=== PATIENT | female | born 1950 | race Caucasian/White ===

== ENCOUNTER 2016-04-24 07:30 | Day surgery (SDC) | payer BC ==
[2016-04-24] MEDS ORDERED: DEXAMETHASONE PRESERVATIVE FREE 10MG/ML VIAL IV ONE (11:07)
[2016-04-24] MEDS ORDERED: BUPIVACAINE 0.5% W/EPI MPF 30 ML VIAL IVP ONE (11:07)
[2016-04-24] MEDS ORDERED: LIDOCAINE 1% W/EPI 1:200,000 MPF 30ML SQ ONE (11:07)
[2016-04-24] MEDS ORDERED: LIDOCAINE 2% MDV (20MG/ML) 20ML VIAL IV ONE (15:47)
[2016-04-24] MEDS ORDERED: MIDAZOLAM HCL 2MG/2ML VIAL IV ONE (15:47)
[2016-04-24] MEDS ORDERED: FENTANYL PF 100MCG/2ML VIAL IV ONE (15:47)
[2016-04-24] MEDS ORDERED: PROPOFOL 10 MG/ML VIAL IV ONE (15:47)
--- NOTE | 2016-04-25 15:13 | Operative Note - [place] ---
DATE OF SURGERY: 04/24/16 PREOPERATIVE DIAGNOSIS: CERVICAL SPONDYLOSIS WITHOUT MYELOPATHY, ICD-10 CODE = M47.812. OPERATION: RADIOFREQUENCY RHIZOTOMY RIGHT CERVICAL FACETS 3/4, 4/5, AND 5/6. SURGEON: EFRAÍN CANAS D.O. ANESTHESIA: LOCAL SEDATION. ANESTHESIA PROVIDER: COLT KAUR CRNA. INDICATION: This patient presents with pain, which is neck. Examination shows tenderness in the cervical spine. Range of motion does cause pain to the neck with extension. Diagnostics show discs 5/6 and 6/7 and diffuse spondylosis. A facet series and previous rhizotomy of 70-90% pain control. Due to the failure of therapy and the success of the facet and previous rhizotomy, she is here for repeat. Because of the revised guidelines limiting the number of levels and bilateral technique, she will have the right today and return for the left. PROCEDURE: Intravenous line, vital sign monitoring, IV sedation, prepped, draped, sterile technique. Cervical facets on the right at 3/4, 4/5, and 5/6 marked and infiltrated. A #22 gauge rhizotomy cannula positioned. Stimulation trials conducted. Rhizotomy burn performed. Local with anti-inflammatory into the sites. Topical antibiotics. Sterile dressing applied. We will monitor and evaluate. EFRAÍN CANAS D.O. Date & Time cc: Dr. Sandhu JOB NUMBER: [id number] MTDD
== END 2016-04-24 10:10 | disposition home or self-care (01) ==
LOC: SUR 07:30
PROVIDERS: ATTEND Pain Medicine Interventional Pain Medicine
DX: M47.812 Spondylosis without myelopathy or radiculopathy, cervical region (principal); I10 Essential (primary) hypertension; E11.9 Type 2 diabetes mellitus without complications; Z79.84 Long term (current) use of oral hypoglycemic drugs; E78.00 Pure hypercholesterolemia, unspecified; M10.9 Gout, unspecified
CPT/HCPCS: 64633; 64634 ×2; 01936; J1100; J3010

== ENCOUNTER 2016-05-08 07:06 | Day surgery (SDC) | payer BC ==
[2016-05-08] MEDS ORDERED: LIDOCAINE 1% W/EPI 1:200,000 MPF 30ML SQ ONE (12:19)
[2016-05-08] MEDS ORDERED: BUPIVACAINE 0.5% W/EPI MPF 30 ML VIAL IVP ONE (12:19)
[2016-05-08] MEDS ORDERED: DEXAMETHASONE PRESERVATIVE FREE 10MG/ML VIAL IV ONE (12:19)
--- NOTE | 2016-05-08 16:07 | Operative Note - [place] ---
DATE OF SURGERY: 05/08/16 PREOPERATIVE DIAGNOSIS: CERVICAL SPONDYLOSIS WITHOUT MYELOPATHY, ICD-10 CODE = M47.812. OPERATION: RADIOFREQUENCY RHIZOTOMY LEFT CERVICAL FACETS 3/4, 4/5, AND 5 /6. SURGEON: EFRAÍN ACNAS D.O. ANESTHESIA: LOCAL SEDATION. ANESTHESIA PROVIDER: MAYO FUENTES CRNA. INDICATION: This patient presents with neck pain. Examination shows tenderness in the cervical spine. Range of motion does cause pain to the neck with extension. Diagnostics show multiple levels of spondylosis. A facet series had resulted in 75% to 90%pain control. Due to the failure of therapy and the success of the facet series, the patient presented for rhizotomy. Due to the revised guidelines limiting the number of levels and bilateral technique, she had the right previous and is here for the left. PROCEDURE: Intravenous line, vital sign monitoring, IV sedation, prepped, draped, sterile technique. Under imaging, the cervical facets on the left at 3/4 , 4/5, and 5/6 were marked. Skin infiltrated. A #22 gauge rhizotomy cannula positioned. Stimulation trials conducted. Rhizotomy burn performed. Local with anti-inflammatory into the sites. Topical antibiotics. Sterile dressing applied. We will monitor and evaluate. EFRAÍN CANAS D.O. Date & Time cc: Dr. Sandhu JOB NUMBER: [id number] MTDD
[2016-05-08] MEDS ORDERED: MIDAZOLAM HCL 2MG/2ML VIAL IV ONE (16:41)
[2016-05-08] MEDS ORDERED: FENTANYL PF 100MCG/2ML VIAL IV ONE (16:41)
[2016-05-08] MEDS ORDERED: PROPOFOL 10 MG/ML VIAL IV ONE (16:41)
== END 2016-05-08 08:55 | disposition home or self-care (01) ==
LOC: SUR 07:06
PROVIDERS: ATTEND Pain Medicine Interventional Pain Medicine
DX: M47.812 Spondylosis without myelopathy or radiculopathy, cervical region (principal); I10 Essential (primary) hypertension; E11.9 Type 2 diabetes mellitus without complications; Z79.84 Long term (current) use of oral hypoglycemic drugs; E78.00 Pure hypercholesterolemia, unspecified
CPT/HCPCS: 64633; 64634 ×2; 01936; J1100; J3010